=== PATIENT | female | born 1950 | race Caucasian/White ===

== ENCOUNTER 2018-03-06 17:14 | Emergency (ER) | payer MEDICARE, OTHER ==
[~2018-03-06 17:14] MED LIST: ALBU1AER INH; ATOR20TA42 PO; DIOV40TA PO; ESTR.3 PO; FENO50TA PO; GUAI100S6 PO; JANU50TA5 PO; MIRA0.12 PO; PREV15CA20 PO; PROZ40CA PO; TOPI200 PO; VESI5TAB PO; ZITH250T PO
[2018-03-06] MEDS ORDERED: IOHEXOL 350 MG/ML 10 ML VIAL (for RAD DIAG) IVCONTRAST ONE (17:15)
[2018-03-06 17:22] VITALS: BP 148/74; PULSE 80; RESP 20; TEMP 97.7; O2SAT 96
[2018-03-06] MEDS ORDERED: DULA10IN SQ (18:02)
[2018-03-06] MEDS ORDERED: LEVO5TAB8 (18:02)
[2018-03-06] MEDS ORDERED: MIRA0.25 PO (18:02)
[2018-03-06] MEDS ORDERED: JANU50TA4 PO (18:02)
[2018-03-06] MEDS ORDERED: ALBUAER3 INH (18:02)
[2018-03-06] MEDS ORDERED: LIPI20TA PO (18:02)
[2018-03-06] MEDS ORDERED: TOPI200 PO (18:02)
[2018-03-06] MEDS ORDERED: PREV30CA36 PO (18:02)
[2018-03-06] MEDS ORDERED: PROZ20CA11 PO (18:02)
[2018-03-06 18:23] VITALS: O2SAT 96
[2018-03-06 18:32] LABS: AUTOMATED NEUTROPHIL # 4.5 TH/MM3 (1.8-7.7); BASOPHIL # 0.1 TH/MM3 (0-0.2); EOSINOPHIL # 0.3 TH/MM3 (0-0.4); EOSINOPHIL % 4.7 % (0.0-4.0); HEMATOCRIT 41.9 % (35.0-46.0); HEMOGLOBIN 13.5 GM/DL (11.6-15.3); LYMPH % 21.4 % (9.0-44.0); LYMPHOCYTE # 1.5 TH/MM3 (1.0-4.8); MEAN CELL VOLUME 83.1 FL (80.0-100.0); MEAN CORPUSCULAR HEMOGLOBIN 26.8 PG (27.0-34.0); MEAN CORPUSCULAR HGB CONC 32.2 % (32.0-36.0); MEAN PLATELET VOLUME 8.3 FL (7.0-11.0); MONO % 5.9 % (0.0-8.0); MONOCYTE # 0.4 TH/MM3 (0-0.9); PLATELET COUNT 313 TH/MM3 (150-450); RED BLOOD COUNT 5.05 MIL/MM3 (4.00-5.30); RED CELL DISTRIBUTION WIDTH 13.4 % (11.6-17.2); WHITE BLOOD COUNT 6.8 TH/MM3 (4.0-11.0)
[2018-03-06 18:40] LABS: CHLORIDE 105 MEQ/L (98-107); SODIUM (NA) 139 MEQ/L (136-145)
[2018-03-06 18:44] LABS: BICARBONATE 25.5 MEQ/L (21.0-32.0); BLOOD UREA NITROGEN 10 MG/DL (7-18); CALCIUM 9.1 MG/DL (8.5-10.1); GLUCOSE,RANDOM 126 MG/DL (74-106); MAGNESIUM 2.2 MG/DL (1.5-2.5)
[2018-03-06 18:47] LABS: ALT (GPT) 22 U/L (10-53); AST (GOT) 19 U/L (15-37); CREATININE 0.73 MG/DL (0.50-1.00); GLOMERULAR FILTRATION RATE 80 ML/MIN (>89)
[2018-03-06 18:49] LABS: TOTAL BILIRUBIN ADULT 0.3 MG/DL (0.2-1.0); TOTAL PROTEIN 7.6 GM/DL (6.4-8.2)
[2018-03-06 18:50] LABS: ALKALINE PHOSPHATASE 129 U/L (45-117)
[2018-03-06] MEDS ORDERED: SODIUM CHLOR 0.9% 1000 ML INJ 1,000 ML IV SCH (19:13)
[2018-03-06] MEDS ORDERED: SODIUM CHLORIDE 0.9% FLUSH 10 ML FLUSH IV FLUSH PRN (19:15)
--- NOTE | 2018-03-06 19:21 | PD ---
HPI Chief Complaint: GI Complaint Time Seen by Provider: 19:13 Travel History International Travel<30 days: No Contact w/Intl Traveler<30days: No Traveled to known affect area: No History of Present Illness HPI The patient is a 68-year-old female that complains of diarrhea and vomiting for 1 month. She does have nausea now but this is subsiding. The vomiting has subsided completely. The diarrhea is once a day and is not bloody. She denies both blood in the stool and fever. The patient states over the last month she has lost 17 pounds. She had in [place] a colonoscopy which except for polyps was apparently normal. She was tested for C. difficile in [place] and this was negative, the patient has been on multiple antibiotics. The patient states she has a hungry/empty feeling in her stomach and classifies this pain as a 5/ 10. The pain is located in the bilateral lower quadrants. She has had a cholecystectomy and appendectomy as well as multiple lithotripsies. 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 PFSH Past Medical History Asthma: Yes Cancer: Yes (SKIN CA WITH RECONTRUCTION ON SCALP) High Cholesterol: Yes Diabetes: Yes Patient Takes Glucophage: Yes Diminished Hearing: No Gastrointestinal Disorders: Yes GERD: Yes Genitourinary: Yes Hypertension: Yes Kidney Stones: Yes (X7) Musculoskeletal: Yes Integumentary: Yes Immunizations Current: Yes Triglycerides - High: Yes Tetanus Vaccination: > 5 Years Influenza Vaccination: No ?: Not Menopausal: Yes Past Surgical History Abdominal Surgery: Yes (LITHOTRUPSY) Appendectomy: Yes Body Medical Devices: BLADDER STIMMULATOR Cholecystectomy: Yes Genitourinary Surgery: Yes (BLADDER SLING/BLADDER STIMMULATOR) Hysterectomy: Yes Joint Replacement: Yes (BILATERAL KNEES) Tonsillectomy: Yes Other Surgery: Yes (HEMORROIDECTOMY) Social History Alcohol Use: No Tobacco Use: No Substance Use: No Allergies-Medications (Allergen,Severity, Reaction): Coded Allergies: chlordiazepoxide (Unverified Allergy, Mild, rash, 03/06/18) Reported Meds & Prescriptions Reported Meds & Active Scripts Active Reported Xyzal (Levocetirizine Dihydrochloride) 5 Mg Tablet Trulicity Inj (Dulaglutide Inj) 0.75 Mg/0.5 Ml Pen 0.75 Mg SQ Q7D Topamax (Topiramate) 200 Mg Tab 200 Mg PO DAILY Janumet (Sitagliptin-Metformin) 50-500 Mg Tab 1 Tab PO BID Mirapex (Pramipexole Dihydrochloride) 0.25 Mg Tab 0.25 Mg PO HS Prevacid (Lansoprazole) 30 Mg Capdr 30 Mg PO HS Prozac (Fluoxetine HCl) 20 Mg Cap 20 Mg PO DAILY Lipitor (Atorvastatin Calcium) 20 Mg Tab 20 Mg PO HS Proair Hfa 8.5 GM Inh (Albuterol Sulfate) 90 Mcg/Act Aer 2 Puff INH Q4-6H PRN 108 mcg/actuation Review of Systems Except as stated in HPI: all other systems reviewed are Neg Physical Exam Narrative GENERAL: The patient is alert, oriented 3 in minimal apparent distress with her discomfort in the lower quadrants. Her vital signs show blood pressure 148/ 74 but otherwise normal. She does appear mildly dehydrated. SKIN: Focused skin assessment warm/dry. HEAD: Atraumatic. Normocephalic. EYES: Pupils equal and round. No scleral icterus. No injection or drainage. ENT: No nasal bleeding or discharge. Mucous membranes pink and moist. NECK: Trachea midline. No JVD. CARDIOVASCULAR: Regular rate and rhythm. No murmur appreciated. RESPIRATORY: No accessory muscle use. Clear to auscultation. Breath sounds equal bilaterally. GASTROINTESTINAL: Abdomen soft with minimal discomfort in the bilateral lower quadrants to direct palpation, nondistended. Hepatic and splenic margins not palpable. No guarding or rebound is present. MUSCULOSKELETAL: No obvious deformities. No clubbing. No cyanosis. No edema. NEUROLOGICAL: Awake and alert. No obvious cranial nerve deficits. Motor grossly within normal limits. Normal speech. PSYCHIATRIC: Appropriate mood and affect; insight and judgment normal. Data Data Last Documented VS Vital Signs Date Time Temp Pulse Resp B/P (MAP) Pulse Ox O2 Delivery O2 Flow Rate FiO2 03/06/18 19:50 74 14 149/76 (100) 97 Room Air 03/06/18 17:22 97.7 Orders Orders Magnesium (Mg) (03/06/18 17:54) Phosphorus (Po4) (03/06/18 17:54) Complete Blood Count With Diff (03/06/18 17:54) Comprehensive Metabolic Panel (03/06/18 17:54) Iv Access Insert/Monitor (03/06/18 17:54) Ecg Monitoring (03/06/18 17:54) Oximetry (03/06/18 17:54) Lipase (03/06/18 19:13) Ct Abd/Pel W Iv Contrast(Rout) (03/06/18 19:13) Sodium Chlor 0.9% 1000 Ml Inj (Ns 1000 M (03/06/18 19:13) Sodium Chloride 0.9% Flush (Ns Flush) (03/06/18 19:15) Iohexol 350 Inj (Omnipaque 350 Inj) (03/06/18 17:15) Labs Laboratory Tests Test 03/06/18 18:20 03/06/18 20:00 White Blood Count 6.8 TH/MM3 Red Blood Count 5.05 MIL/MM3 Hemoglobin 13.5 GM/DL Hematocrit 41.9 % Mean Corpuscular Volume 83.1 FL Mean Corpuscular Hemoglobin 26.8 PG Mean Corpuscular Hemoglobin Concent 32.2 % Red Cell Distribution Width 13.4 % Platelet Count 313 TH/MM3 Mean Platelet Volume 8.3 FL Neutrophils (%) (Auto) 67.0 % Lymphocytes (%) (Auto) 21.4 % Monocytes (%) (Auto) 5.9 % Eosinophils (%) (Auto) 4.7 % Basophils (%) (Auto) 1.0 % Neutrophils # (Auto) 4.5 TH/MM3 Lymphocytes # (Auto) 1.5 TH/MM3 Monocytes # (Auto) 0.4 TH/MM3 Eosinophils # (Auto) 0.3 TH/MM3 Basophils # (Auto) 0.1 TH/MM3 CBC Comment DIFF FINAL Differential Comment Blood Urea Nitrogen 10 MG/DL Creatinine 0.73 MG/DL Random Glucose 126 MG/DL Total Protein 7.6 GM/DL Albumin 4.0 GM/DL Calcium Level 9.1 MG/DL Phosphorus Level 3.0 MG/DL Magnesium Level 2.2 MG/DL Alkaline Phosphatase 129 U/L Aspartate Amino Transf (AST/SGOT) 19 U/L Alanine Aminotransferase (ALT/SGPT) 22 U/L Total Bilirubin 0.3 MG/DL Sodium Level 139 MEQ/L Potassium Level 3.8 MEQ/L Chloride Level 105 MEQ/L Carbon Dioxide Level 25.5 MEQ/L Anion Gap 9 MEQ/L Estimat Glomerular Filtration Rate 80 ML/MIN Lipase 122 U/L MDM Medical Decision Making Medical Screen Exam Complete: Yes Emergency Medical Condition: Yes Medical Record Reviewed: Yes Interpretation(s) The CBC shows a white count of 6800 and is completely normal. The CT abdomen/ pelvis with IV contrast shows no acute findings. Nonobstructing bilateral renal calculi are noted and there is a previous cholecystectomy and the stimulator wire is present apparently for the bladder pacemaker. The complete metabolic profile shows a GFR of 80, glucose 126, alkaline phosphatase 129 but is otherwise normal. The phosphorus is normal and the magnesium is normal. Differential Diagnosis Mild dehydration, electrolyte disorder, gastroenteritis, pancreatitis, colitis Narrative Course Patient has a mild chronic diarrhea which is apparently resolving slowly. She is already been worked up for C. difficile and found to be negative the nausea is resolving and the vomiting has completely resolved earlier this week. The patient's symptoms appear to be resolving. The nausea is gone, there is been no vomiting and the diarrhea is only once a day. The patient should continue to increase her clear liquids. She is given Lortab 5 both to decrease the stool motility and for her minimal abdominal pain. She should follow-up with a assistant secretary. She may was to call her assistant secretary at home for advice. Diagnosis Primary Impression: Gastroenteritis Additional Instructions: Call your assistant secretary at home for advice. The Lortab is 1 tablet every 4 hours as needed for pain. It does decreased intestinal motility and may help your diarrhea. Continue to increase YOUr clear liquid intake. Med/Other Pt SpecificInfo: Prescription(s) given Disposition: 01 DISCHARGE HOME Condition: Stable Cameron Iglesias MD Mar 06, 2018 19:21
[2018-03-06 19:50] VITALS: BP 149/76; PULSE 74; RESP 14; O2SAT 97
--- NOTE | 2018-03-06 21:13 | RADRPT ---
EXAM DATE: 03/06/2018 9:03 PM EDT AGE/SEX: 68 years / Female INDICATIONS: Bilateral lower quadrant pain. Diarrhea and vomiting x 1 month. CLINICAL DATA: This is the patient's initial encounter. Patient reports that signs and symptoms have been present for 2 days and indicates a pain score of 5/10. MEDICAL/SURGICAL HISTORY: Diabetes. Hypertension. Asthma. Appendectomy. Cholecystectomy. He morrhoidectomy. Bladder sling. Lithotripsy. ORAL CONTRAST: No oral contrast ingested. RADIATION DOSE: 20.33 CTDI (mGy) COMPARISON: No prior exams available for comparison. TECHNIQUE: Multiple contiguous axial images were obtained through the abdomen and pelvis following b olus infusion of 95 ml Omnipaque 350 (iohexol) nonionic water-soluble contrast as a single exam dos e. No oral contrast ingested. Using automated exposure control and adjustment of the mA and/or kV ac cording to patient size, the radiation dose was kept as low as reasonably achievable to obtain optima l diagnostic quality images. FINDINGS: Lung bases are clear. There is fatty infiltration of the liver which is enlarged to 23.[address] noted at dome of liver and inferior right lobe. Spleen, adrenals and pancreas unremarkable. Right kidney demonstrates tiny nonobstructing 1 mm calculus in the lower pole. Left kidney demonstrates two 4 mm nonobstructing calculi in the lower pole and an additional 1 mm calculus. No ureteral or bladde r calculi identified. There is no bowel obstruction. No free air or free fluid. No adenopathy. Previous cholecystectomy. St imulator wire right posterior hemipelvis. CONCLUSION: 1. No acute findings. Bilateral nonobstructing renal calculi as above. Previous cholecystectomy. Sti mulator wire present in right posterior hemipelvis. Electronically signed by: Terrence Wright MD 03/06/2018 9:12 PM EDT
[2018-03-06 22:10] VITALS: BP 188/94; PULSE 88; RESP 14; O2SAT 96
[2018-03-06] MEDS ORDERED: PERC5TAB12 PO (22:26)
== END 2018-03-06 22:41 | disposition home or self-care (01) ==
LOC: PHED 17:14
DX: K52.9 Noninfective gastroenteritis and colitis, unspecified (principal); N20.0 Calculus of kidney; E86.0 Dehydration; J45.909 Unspecified asthma, uncomplicated; E78.00 Pure hypercholesterolemia, unspecified; E11.9 Type 2 diabetes mellitus without complications; K21.9 Gastro-esophageal reflux disease without esophagitis; I10 Essential (primary) hypertension; E78.1 Pure hyperglyceridemia; Z90.49 Acquired absence of other specified parts of digestive tract; Z87.442 Personal history of urinary calculi; Z79.899 Other long term (current) drug therapy; Z88.8 Allergy status to other drugs, medicaments and biological substances; Z79.51 Long term (current) use of inhaled steroids
CPT/HCPCS: 74177; 80053; 83690; 83735; 84100; 85025; 96360; 99284; J7030; Q9967